=== PATIENT | male | born 1975 | race Caucasian/White ===

== ENCOUNTER 2017-10-29 09:19 | Emergency (ER) | payer BC ==
[2017-10-29 09:46] VITALS: BP 132/81
--- NOTE | 2017-10-29 10:01 | RAD ---
HISTORY: Right-sided pleuritic chest pain COMPARISONS: January 13, 2016 VIEWS: 4: Frontal dual-energy and lateral views of the chest. FINDINGS: CARDIOMEDIASTINAL SILHOUETTE: The cardiomediastinal silhouette is normal. ROLAND: The roland are normal. PLEURA: The costophrenic angles are sharp. No pleural abnormalities are noted. LUNG PARENCHYMA: The lungs are clear. ABDOMEN: The upper abdomen is clear. There is no subphrenic gas. BONES AND SOFT TISSUES: Mild degenerative changes are noted of the spine. OTHER: None. IMPRESSION: NO ACTIVE CARDIOPULMONARY DISEASE.
--- NOTE | 2017-10-29 10:16 | UC ---
Respiratory Complaint HPI - HPI Summary HPI Summary: right upper back pain x 2 weeks pain is pleuritic, worse with cough and deep breathing, had Bronchitis 3 or 4 weeks ago, no fever, no chills, no sob - History of Current Complaint Chief Complaint: UCRespiratory Stated Complaint: CHEST COMPLAIN/PAIN Time Seen by Provider: 10/29/17 09:31 Hx Obtained From: Patient Onset/Duration: Gradual Onset, Lasting Weeks - 2, Still Present Timing: Constant Severity Initially: Moderate Severity Currently: Moderate Pain Intensity: 1 Aggravating Factors: Exertion, Deep Breaths Alleviating Factors: Nothing Associated Signs And Symptoms: Negative: Fever, Chills, Pleuritic Chest Pain, Wheezing, Hemoptysis, Dizziness, Calf Pain, Calf Swelling, URI, Nasal Congestion , Hoarseness, Sinus Discomfort - Allergies/Home Medications Allergies/Adverse Reactions: Allergies Allergy/AdvReac Type Severity Reaction Status Date / Time dogs, dust mites, Isacc Allergy Difficulty Uncoded 10/29/17 09:38 weed Breathing/Wheezing Home Medications: Home Medications Budesonide/Formote 80/4.5(NF) [Symbicort 80/4.5 (NF)] 1 puff INH SEE INSTRUCTIONS PRN 10/29/17 [History Confirmed 10/29/17] PMH/Surg Hx/FS Hx/Imm Hx Previously Healthy: Yes - Surgical History Surgical History: None - Family History Known Family History: Negative: Diabetes - Social History Alcohol Use: None Substance Use Type: None Smoking Status (MU): Never Smoked Tobacco Review of Systems Constitutional: Negative Skin: Negative Eyes: Negative ENT: Negative Respiratory: Negative Cardiovascular: Negative Is Patient Immunocompromised?: No All Other Systems Reviewed And Are Negative: Yes Physical Exam Triage Information Reviewed: Yes Appearance: Well-Appearing, No Pain Distress, Well-Nourished Vital Signs: Initial Vital Signs Temp 98.4 F 10/29/17 09:24 Pulse 84 10/29/17 09:24 Resp 18 10/29/17 09:24 BP 132/81 10/29/17 09:24 Pulse Ox 99 10/29/17 09:24 Vital Signs Reviewed: Yes Eyes: Positive: Conjunctiva Clear ENT: Positive: Normal ENT inspection, Hearing grossly normal, Pharynx normal Neck: Positive: Supple, Nontender, No Lymphadenopathy Respiratory: Positive: Chest non-tender, Lungs clear, Normal breath sounds Cardiovascular: Positive: RRR, No Murmur, Pulses Normal Abdominal Exam: Normal Abdomen Description: Positive: Nontender, Soft. Negative: CVA Tenderness (R), CVA Tenderness (L) Bowel Sounds: Positive: Present Skin Exam: Normal UC Diagnostic Evaluation - Laboratory O2 Sat by Pulse Oximetry: 99 Diagnostic Studies Comment: IMPRESSION: chest xray. NO ACTIVE CARDIOPULMONARY DISEASE. - Radiology Radiology Interpretation Completed By: Radiologist - IMPRESSION: no acute disease Respiratory Course/Dx - Differential Dx/Diagnosis Provider Diagnoses: pleurisy Discharge - Sign-Out/Discharge Documenting (check all that apply): Discharge/Admit/Transfer - Discharge Plan Condition: Stable Disposition: HOME Prescriptions: Naproxen [Naproxen 500 mg tab] 500 mg PO BID #20 tablet. Patient Education Materials: Pleurisy (ED) Referrals: Kurtis Chahal MD [Primary Care Provider] - 7 Days - Billing Disposition and Condition Condition: STABLE Disposition: HOME
== END 2017-10-29 10:12 | disposition home or self-care (01) ==
LOC: UCCORT 09:19
DX: R09.1 Pleurisy (principal)
CPT/HCPCS: 71046; 99212; G0463

== ENCOUNTER 2019-02-06 15:08 | Emergency (ER) | payer BC ==
[2019-02-06 15:45] VITALS: BP 136/88
--- NOTE | 2019-02-06 16:05 | UC ---
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 Pt states it is very itchy. " -has never had poison noemí befoe. 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 not painful - History of Current Complaint Chief Complaint: UCSkin Time Seen by Provider: 02/06/19 15:39 Stated Complaint: SKIN COMPLAINT Pain Intensity: 0 - Allergy/Home Medications Allergies/Adverse Reactions: Allergies Allergy/AdvReac Type Severity Reaction Status Date / Time dogs, dust mites, Isacc Allergy Difficulty Uncoded 02/06/19 15:45 weed Breathing/Wheezing PMH/Surg Hx/FS Hx/Imm Hx Previously Healthy: Yes Respiratory History: Asthma - Surgical History Surgical History: None - Family History Known Family History: Negative: Diabetes - Social History Alcohol Use: Rare Substance Use Type: None Smoking Status (MU): Never Smoked Tobacco Review of Systems All Other Systems Reviewed And Are Negative: Yes Constitutional: Positive: Negative. Negative: Fever, Chills, Fatigue Skin: Positive: Rash Eyes: Positive: Negative ENT: Positive: Negative Respiratory: Positive: Negative Cardiovascular: Positive: Negative Gastrointestinal: Positive: Vomiting - x 1 episdoe w/o any other related sx. resolved. no nausea Motor: Positive: Negative Neurovascular: Positive: Negative Musculoskeletal: Positive: Negative Neurological: Positive: Negative Psychological: Positive: Negative Is Patient Immunocompromised?: No Physical Exam Triage Information Reviewed: Yes Appearance: Well-Appearing, No Pain Distress, Well-Nourished Vital Signs: Initial Vital Signs Temp 98.1 F 02/06/19 15:40 Pulse 79 02/06/19 15:40 Resp 16 02/06/19 15:40 BP 136/88 02/06/19 15:40 Pulse Ox 100 02/06/19 15:40 Vital Signs Reviewed: Yes Eye Exam: Normal Neck exam: Normal Respiratory Exam: Normal Respiratory: Positive: Lungs clear Cardiovascular Exam: Normal Musculoskeletal Exam: Normal Neurological Exam: Normal Psychological Exam: Normal Skin: Positive: Rashes - left arme w/ streaks of rash on non-blanching eruytjematous base w/ superimposed small vesicles w/ clear/yellow fluids Course/Dx - Course Course Of Treatment: -disc dx and reasons for dx as contact dermatitis. 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 -disc pred risks. has had prednisone in past for resp illnesses and he is concerend about using again. offered treatment w/ topical streoid only for less systemic effect as CD is eventually self limited. he prefers to get oral medrol dose pack than just topical d/t length of duration. - Differential Diagnoses - Skin Complaint Differential Diagnoses: Cellulitis, Contact Dermatitis, Eczema - Diagnoses Provider Diagnosis: Contact dermatitis Discharge ED - Sign-Out/Discharge Documenting (check all that apply): Patient Departure All imaging exams completed and their final reports reviewed: No Studies - Discharge Plan Condition: Stable Disposition: HOME Prescriptions: methylPREDNISolone [Medrol Dosepak 4 MG*] 4 mg PO DAILY #1 edin Patient Education Materials: Contact Dermatitis (DC) Referrals: Kurtis Chahal MD [Primary Care Provider] - If Needed Additional Instructions: We discussed risks of prednisone including but not limited to anxiety, agitation , insomnia, GI upset, elevated blood pressures and blood sugar readings, adrenal crisis and avascular necrosis of the hip. -You can also use OTC topical hydrocortisone cream to help the itching -Follow up with your PCP if symptoms increase or persist. 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 - Billing Disposition and Condition Condition: STABLE Disposition: Home
== END 2019-02-06 16:20 | disposition home or self-care (01) ==
LOC: UCCORT 15:08
DX: L25.9 Unspecified contact dermatitis, unspecified cause (principal)
CPT/HCPCS: 99212; G0463